=== PATIENT | male | born 1980 | race Caucasian/White ===

== ENCOUNTER 2022-06-26 07:30 | Emergency (ER) | payer OTHER, SELFPAY ==
[2022-06-26] MEDS ORDERED: Ketorolac Tromethamine 60 MG/2 ML VIAL ONE (07:46)
[2022-06-26 09:07] LABS: Bilirubin Small (Negative); Blood, Urine Trace (Negative); Glucose, Urine (Dipstick) Negative (Negative); Ketone, Urine Trace mg/dL (Negative); Leukocyte Small (Negative); Nitrite Negative (Negative); Protein, Urine (Dipstick) Trace mg/dL (Neg-Trace); Urobilinogen 0.2 mg/dL (Less than 2); pH, Urine 5.5 (5.0-9.0)
[2022-06-26 09:16] LABS: Clarity Hazy (Clear); Specific Gravity, Urine 1.029 (1.002-1.036)
[2022-06-26 09:17] LABS: Bacteria/HPF 1+ HPF (None Seen); RBC/HPF 0-3 HPF (0-3); Squamous Epithelial 0-3 HPF (0-3); WBC/HPF Greater than 50 HPF (0-3)
[2022-06-26 19:48] LABS: Chlam.trachomatis by PCR,Urine Not Detected (NotDetected); GC N.gonorrhoeae PCR,UrineVOID Not Detected (NotDetected)
== END 2022-06-26 09:51 | disposition home or self-care (01) ==
LOC: MADERS 07:30
DX: N45.2 Orchitis (principal); F17.210 Nicotine dependence, cigarettes, uncomplicated
CPT/HCPCS: 76870; 81003; 81015; 87491; 87591; 93976; 96372; J1885

== ENCOUNTER 2025-03-12 10:31 | Emergency (ER) | payer OTHER | END 2025-03-12 12:10 | LOC: MADERS 10:31 | DX: S60.221A Contusion of right hand, initial encounter (principal); F17.210 Nicotine dependence, cigarettes, uncomplicated; Y04.8XXA Assault by other bodily force, initial encounter | CPT/HCPCS: 99284 ==